=== PATIENT | female | born 1970 | race Caucasian/White ===

== ENCOUNTER 2020-06-08 11:07 | Inpatient (IN) ==
[2020-06-08] MEDS ORDERED: HYDROmorphone 2 MG/1 ML VIAL IV STA ×2 (11:24→13:32)
[2020-06-08] MEDS ORDERED: ONDANSETRON 4 MG/2 ML VIAL IV STA (11:24)
[2020-06-08] MEDS ORDERED: DEXTROSE 5% NACL 0.45% 1,000 ML IV SCH (11:30)
[2020-06-08 12:26] LABS: Basophils % 0.3 % (0.0-0.8); Eosinophils % 0.2 % (0.00-10.9); Hemoglobin 11.8 GM/DL (12.0-16.0); Immature Granulocytes % 0.9 %; Lymphocytes # 1.2 10*3/uL (1.4-4.0); Lymphocytes % 10.3 % (21.3-54.2); Mean Corpuscular HGB Conc 32.8 GM/DL (32-36); Mean Corpuscular Volume 82.6 FL (87-102); Mean Platelet Volume 11.9 FL (9.6-12.0); Neutrophils % 81.3 % (38.7-73.9); Platelet Count 235 T/CUMM (130-400); Red Blood Count 4.36 MC/CUMM (3.8-5.5); Red Cell Distribution Width 16.8 % (9.3-17.3); White Blood Count 11.2 T/CUMM (4-12)
[2020-06-08 12:42] LABS: Albumin 2.9 G/DL (3.4-5.0); Bilirubin,Total 0.6 MG/DL (0.2-1.0); Calcium 8.8 MG/DL (8.5-10.1); Osmolality,Calculated 271.8 MOS/KG (273-304); Potassium 3.7 MMOL/L (3.5-5.1); Total Protein 7.5 G/DL (6.4-8.3)
[2020-06-08] MEDS ORDERED: fentaNYL 100 MCG/2 ML VIAL ONE ×3 (14:06→17:01)
[2020-06-08] MEDS ORDERED: DEXAMETHASONE 4 MG/1 ML VIAL ONE ×2 (14:07→15:43)
[2020-06-08] MEDS ORDERED: LIDOCAINE 1% 5 ML VIAL ONE (14:07)
[2020-06-08] MEDS ORDERED: ROPIVACAINE 0.5% 30 ML VIAL ONE (14:07)
[2020-06-08] MEDS ORDERED: MIDAZOLAM 2 MG/2 ML VIAL ONE (14:07)
[2020-06-08] MEDS ORDERED: SCOPOLAMINE 1.5 MG PATCH TRANSDERM ONE (14:28)
[2020-06-08] MEDS ORDERED: TISSUE ADHESIVE 1 EACH APPLICATOR TOP ONE (14:37)
[2020-06-08] MEDS ORDERED: ONDANSETRON 4 MG/2 ML VIAL ONE (14:38)
[2020-06-08] MEDS ORDERED: LIDOCAINE 2% 5 ML VIAL ONE (14:53)
[2020-06-08] MEDS ORDERED: propofoL 200 MG/20 ML VIAL IV ONE (14:53)
[2020-06-08] MEDS ORDERED: ROCURONIUM 50 MG/5 ML VIAL IV ONE (14:53)
[2020-06-08] MEDS ORDERED: PHENYLEPHRINE 1 MG/10 ML SYRINGE IV ONE ×3 (15:09→16:46)
[2020-06-08] MEDS ORDERED: ceFAZolin 1,000 MG VIAL ONE (15:16)
[2020-06-08] MEDS ORDERED: LACTATED RINGERS 1,000 ML IV ONE ×2 (15:20→16:47)
[2020-06-08] MEDS ORDERED: PROMETHAZINE 25 MG/1 ML VIAL ONE (15:43)
[2020-06-08] MEDS ORDERED: PROMETHAZINE INJ 25 MG in SODIUM CHLORIDE 0.9% 50 ML IV PRN (16:05)
[2020-06-08] MEDS ORDERED: ONDANSETRON 4 MG/2 ML VIAL IV PRN ×3 (16:05→19:03)
[2020-06-08] MEDS ORDERED: MEPERIDINE 25 MG/1 ML VIAL IV PRN (16:05)
[2020-06-08] MEDS ORDERED: HYDROmorphone 2 MG/1 ML VIAL IV PRN (16:05)
[2020-06-08] MEDS ORDERED: diphenhydrAMINE 50 MG/1 ML VIAL IV PRN (16:05)
[2020-06-08 16:55] LABS: Bilirubin,Urine Negative (Negative); Blood, Urine Negative (Negative); Glucose,Urine (UA) 150 mg/dL (Negative); Ketones,Urine Negative (Negative); Mucus,Urine Occasional /LPF (Occasional); Nitrite,Urine Negative (Negative); Protein,Urine Negative; RBC,Urine 5 /HPF (0-4); Squamous Epithelial Cell,Urine Occasional /HPF (0-10); Urine Appearance CLEAR (Clear); Urine Color Yellow (Yellow); Urine Specific Gravity 1.021 (1.001-1.035); Urine Urobilinogen < 2.0 EU/DL (0.2-1.0); WBC,Urine 1 /HPF (0-6)
[2020-06-08] MEDS ORDERED: ACETAMINOPHEN 1,000 MG/100 ML VIAL IV ONE (16:56)
[2020-06-08] MEDS ORDERED: KETOROLAC 30 MG/1 ML VIAL IV PRN (18:04)
[2020-06-08] MEDS ORDERED: ACETAMINOPHEN 325 MG TABLET PO PRN (18:04)
[2020-06-08] MEDS ORDERED: BISACODYL 10 MG SUPP RECTAL PRN ×2 (18:04→18:08)
[2020-06-08] MEDS ORDERED: MAGNESIUM HYDROXIDE SUSP 30 ML UDCUP PO PRN (18:04)
[2020-06-08] MEDS ORDERED: BENZOCAINE/MENTHOL LOZENGE 18/BOX PO PRN (18:04)
[2020-06-08] MEDS ORDERED: IBUPROFEN 800 MG TABLET PO PRN (18:04)
[2020-06-08] MEDS ORDERED: LACTATED RINGERS 1,000 ML IV SCH (18:30)
[2020-06-08] MEDS ORDERED: MEPERIDINE 50 MG/1 ML VIAL IV PRN (19:04)
[2020-06-08] MEDS: KETOROLAC 30 MG/1 ML VIAL IV SCH (19:10)
[2020-06-08] MEDS: SIMETHICONE CHEW 80 MG TABLET PO PRN (21:50)
[2020-06-08] MEDS: DOCUSATE SODIUM 100 MG CAPSULE PO PRN (22:46)
[2020-06-08] MEDS: ceFAZolin 1,000 MG in SYRINGE 1 EACH IV SCH (23:09)
[2020-06-09] MEDS: KETOROLAC 30 MG/1 ML VIAL IV SCH ×5 (02:06→23:37)
[2020-06-09] MEDS: ceFAZolin 1,000 MG in SYRINGE 1 EACH IV SCH (06:08)
[2020-06-09 06:41] LABS: Basophils % 0.1 % (0.0-0.8); Hematocrit 33.4 VOL% (35.7-47.0); Hemoglobin 10.7 GM/DL (12.0-16.0); Immature Granulocytes % 0.3 %; Immature Granulocytes Absolute 0.03 #; Lymphocytes # 1.1 10*3/uL (1.4-4.0); Lymphocytes % 12.7 % (21.3-54.2); Mean Corpuscular Volume 85.2 FL (87-102); Mean Platelet Volume 12.1 FL (9.6-12.0); Monocytes % 11.1 % (1.7-12.7); Neutrophils % 75.8 % (38.7-73.9); Platelet Count 210 T/CUMM (130-400); Red Blood Count 3.92 MC/CUMM (3.8-5.5); Red Cell Distribution Width 16.8 % (9.3-17.3); White Blood Count 8.6 T/CUMM (4-12)
[2020-06-09] MEDS: METOCLOPRAMIDE 10 MG/2 ML VIAL IV SCH ×2 (12:52→18:41)
[2020-06-09] MEDS: BISACODYL 10 MG SUPP RECTAL SCH (18:30)
[2020-06-09] MEDS: DOCUSATE SODIUM 100 MG CAPSULE PO PRN (20:32)
[2020-06-09] MEDS: SIMETHICONE CHEW 80 MG TABLET PO PRN (20:32)
[2020-06-09] MEDS ORDERED: ceFAZolin 1,000 MG in SYRINGE 1 EACH IV SCH ×2 (23:00)
[2020-06-10] MEDS: BISACODYL 10 MG SUPP RECTAL SCH (00:50)
[2020-06-10] MEDS: METOCLOPRAMIDE 10 MG/2 ML VIAL IV SCH ×3 (00:52→12:26)
[2020-06-10] MEDS: KETOROLAC 30 MG/1 ML VIAL IV SCH ×3 (06:50→12:24)
[2020-06-10 11:55] VITALS: BP 113/73
== END 2020-06-10 13:25 | disposition home or self-care (01) | DRG 742 ==
LOC: N.ED 11:07 → N.OB 11:07 → N.ED 14:25 → N.OB 14:25 → OBSVTOIN 18:23
PROVIDERS: ADMIT Obstetrics & Gynecology; ATTEND Obstetrics & Gynecology